=== PATIENT | female | born 1995 | race Caucasian/White ===

== ENCOUNTER 2022-04-06 02:54 | Emergency (ER) | payer OTHER ==
[2022-04-06] VITALS (9 sets, daily range): BP systolic 90–118; BP diastolic 51–76
[~2022-04-06 02:54] MED LIST: AMOXICILLIN500 MG OR; AMOXICILLIN500 MG PO; MELOXICAM15 MG PO; NUVARING; NUVARING VA; PROBIOTI2; ROBITUSSIN AC10 ML OR; ZOLOFT100 MG PO
[2022-04-06 03:50] LABS: IMMATURE GRANULOCYTES 0.2 % (0.0-5.0); MEAN CORPUSCULAR HGB 32.2 pG CALC (26.0-32.0); MEAN CORPUSCULAR HGB CONC 33.9 g/dL CAL (32.0-36.0); NEUT# 6.26 thou/uL (2.00-7.15); RED BLOOD COUNT 4.19 mill/uL (4.20-5.60); RED CELL DISTRI WIDTH 13.5 % (11.5-15.5)
[2022-04-06 03:51] LABS: URINE BILIRUBIN - DIPSTICK NEGATIVE (NEGATIVE); URINE COLOR YELLOW; URINE GLUCOSE - DIPSTICK NEGATIVE (NEGATIVE); URINE KETONE NEGATIVE (NEGATIVE); URINE PROTEIN - DIPSTICK NEGATIVE (NEG-TRACE); URINE SPECIFIC GRAVITY <=1.005; URINE UROBILINOGEN - DIPSTICK 0.2 E.U./dL (0.2)
[2022-04-06 03:55] LABS: HEMATOCRIT 39.8 % (37.0-47.0); HEMOGLOBIN 13.5 g/dl (12.0-16.0)
[2022-04-06 04:02] LABS: URINE LEUK ESTERASE SMALL (NEGATIVE); URINE NITRITE - DIPSTICK NEGATIVE (Negative)
[2022-04-06 04:41] LABS: URINE BLOOD DIPSTICK NEGATIVE (NEGATIVE)
[2022-04-06 04:42] LABS: URINE BACTERIA FEW hpf; URINE EPITHELIAL CELLS MANY EPI/hpf (0-FEW)
[2022-04-06 05:17] LABS: ACT PARTIAL THROMBO TIME 24.2 SECONDS (20.0-32.5)
[2022-04-06 05:36] LABS: ALKALINE PHOSPHATASE 74 u/l (38-126); ANION GAP 13 (6-22 (CALC)); BILIRUBIN, TOTAL 0.3 mg/dL (0.0-1.4); BUN 5 mg/dL (7-17); BUN/CREATININE RATIO 8 (12-20 (CALC)); CARBON DIOXIDE 23 mmol/l (22-30); CHLORIDE 105 mmol/l (95-108); CREATININE 0.6 mg/dL (0.5-1.0); GFR FOR AFR.AMER. > 60 ML/MIN (>=60 (CALC)); GFR OTHER RACES > 60 ML/MIN (>=60 (CALC)); LIPASE 43 u/l (23-300); POTASSIUM 3.7 mmol/l (3.5-5.1); SGOT/AST 24 u/l (14-36); SODIUM 137 mmol/l (137-146)
[2022-04-06 05:37] LABS: ALBUMIN 4.6 g/dL (3.2-5.0)
[2022-04-06] MEDS ORDERED: NAPROXEN EC500 MG PO (06:15)
[2022-04-06] MEDS ORDERED: BACTRIM DS1 TAB PO (06:18)
== END 2022-04-06 06:49 | disposition home or self-care (01) ==
LOC: ED 02:54
DX: R07.89 Other chest pain (principal); N39.0 Urinary tract infection, site not specified; F17.200 Nicotine dependence, unspecified, uncomplicated; Z86.718 Personal history of other venous thrombosis and embolism; B96.20 Unspecified Escherichia coli [E. coli] as the cause of diseases classified elsewhere

== ENCOUNTER 2022-04-20 18:34 | Emergency (ER) | payer OTHER ==
[~2022-04-20] VITALS: Ht 165.1 cm; Wt 67.0 kg
[~2022-04-20 18:34] MED LIST changes: +BACTRIM DS1 TAB PO; +NAPROXEN EC500 MG PO
[2022-04-20 19:40] LABS: HEMATOCRIT 42.1 % (37.0-47.0); HEMOGLOBIN 14.4 g/dl (12.0-16.0); IMMATURE GRANULOCYTES 0.6 % (0.0-5.0); MEAN CELL VOLUME 91.7 fL CALC (80.0-100.0); MEAN CORPUSCULAR HGB 31.4 pG CALC (26.0-32.0); MEAN CORPUSCULAR HGB CONC 34.2 g/dL CAL (32.0-36.0); NEUT# 9.3 thou/uL (2.00-7.15); RED BLOOD COUNT 4.59 mill/uL (4.20-5.60); RED CELL DISTRI WIDTH 12.7 % (11.5-15.5)
[2022-04-20 19:59] LABS: HCG SERUM/URINE (NEG/POS) NEGATIVE (NEGATIVE)
[2022-04-20 20:00] LABS: ALKALINE PHOSPHATASE 68 u/l (38-126); ANION GAP 14 (6-22 (CALC)); BILIRUBIN, TOTAL 0.3 mg/dL (0.0-1.4); BUN 10 mg/dL (7-17); BUN/CREATININE RATIO 12 (12-20 (CALC)); CARBON DIOXIDE 20 mmol/l (22-30); CHLORIDE 98 mmol/l (95-108); CREATININE 0.8 mg/dL (0.5-1.0); GFR FOR AFR.AMER. > 60 ML/MIN (>=60 (CALC)); GFR OTHER RACES > 60 ML/MIN (>=60 (CALC)); POTASSIUM 3.1 mmol/l (3.5-5.1); SGOT/AST 24 u/l (14-36); TOTAL PROTEIN 7.1 g/dL (6.3-8.2)
[2022-04-20 20:01] LABS: SODIUM 129 mmol/l (137-146)
[2022-04-20 21:51] LABS: URINE BILIRUBIN - DIPSTICK NEGATIVE (NEGATIVE); URINE BLOOD DIPSTICK TRACE-LYSED (NEGATIVE); URINE COLOR YELLOW; URINE GLUCOSE - DIPSTICK NEGATIVE (NEGATIVE); URINE KETONE NEGATIVE (NEGATIVE); URINE LEUK ESTERASE TRACE (NEGATIVE); URINE PROTEIN - DIPSTICK NEGATIVE (NEG-TRACE); URINE UROBILINOGEN - DIPSTICK 0.2 E.U./dL (0.2)
[2022-04-20 21:55] LABS: URINE NITRITE - DIPSTICK NEGATIVE (Negative)
[2022-04-20 22:34] VITALS: BP 108/64
== END 2022-04-20 22:44 | disposition home or self-care (01) ==
LOC: ED 18:34
PROVIDERS: Family Medicine
DX: B34.9 Viral infection, unspecified (principal); L27.1 Localized skin eruption due to drugs and medicaments taken internally; T36.8X5A Adverse effect of other systemic antibiotics, initial encounter; F17.290 Nicotine dependence, other tobacco product, uncomplicated; Z86.718 Personal history of other venous thrombosis and embolism; Z20.822 Contact with and (suspected) exposure to COVID-19

== ENCOUNTER 2023-06-08 11:21 | Emergency (ER) | payer OTHER ==
[~2023-06-08] VITALS: Ht 165.1 cm; Wt 74.6 kg
[2023-06-08] MEDS ORDERED: LOVENOX40 MG/0.4 SC (11:49)
[2023-06-08] MEDS ORDERED: PRE-NATAL PO (11:50)
[2023-06-08 15:12] VITALS: BP 124/66
== END 2023-06-08 15:13 | disposition home or self-care (01) ==
LOC: ED 11:21
DX: B34.9 Viral infection, unspecified (principal); F17.200 Nicotine dependence, unspecified, uncomplicated; Z86.718 Personal history of other venous thrombosis and embolism; Z20.822 Contact with and (suspected) exposure to COVID-19

== ENCOUNTER 2023-08-21 18:06 | Emergency (ER) | payer OTHER ==
[~2023-08-21] VITALS: Ht 165.1 cm; Wt 77.0 kg
[~2023-08-21 18:06] MED LIST changes: +ALLERGY RE50 MCG/ACT; +AMOX/K CLAV875 M1 PO; +LOVENOX40 MG/0.4 SC; +PRE-NATAL PO; +ZYRTEC10 MG PO
[2023-08-21 18:22] VITALS: BP 128/69
[2023-08-21 18:30] VITALS: BP 113/71
[2023-08-21] MEDS ORDERED: ZPAK PO (18:41)
[2023-08-21] MEDS ORDERED: VENTOLIN HFA108 MCG PO (18:42)
[2023-08-21 18:45] VITALS: BP 109/68
[2023-08-21 18:48] VITALS: BP 109/68
== END 2023-08-21 18:53 | disposition home or self-care (01) ==
LOC: ED 18:06
DX: J06.9 Acute upper respiratory infection, unspecified (principal); F17.200 Nicotine dependence, unspecified, uncomplicated; Z86.718 Personal history of other venous thrombosis and embolism